=== PATIENT | female | born 1955 | race Caucasian/White ===

== ENCOUNTER 2018-10-28 11:33 | Emergency (ER) | payer OTHER ==
[~2018-10-28] VITALS: Ht 152.4 cm; Wt 64.0 kg
[2018-10-28 12:15] VITALS: Ht 152.4 cm; Wt 64.0 kg
[2018-10-28 14:11] LABS: CARBON DIOXIDE 22.4 mmol/L (21-32); CHLORIDE SERUM 102 mmol/L (98-107); CREATININE SERUM 0.7 mg/dL (0.6-1.0); GFR1 > 60 mL/min; GLUCOSE SERUM 157 mg/dL (74-106); POTASSIUM SERUM 4.8 mmol/L (3.5-5.1); SODIUM SERUM 138 mmol/L (136-145)
[2018-10-28 14:15] LABS: ALBUMIN 3.7 g/dL (3.4-5.0); ALKALINE PHOSPHATASE 90 U/L (46-116); ALT/SGPT 23 U/L (14-59); AST/SGOT 15 U/L (15-37); BILIRUBIN TOTAL 0.26 mg/dL (0.20-1.00); LIPASE 77 IU/L (73-393)
[2018-10-28 14:20] LABS: PLATELET COUNT 295 x10^3mcL (130-400)
[2018-10-28 14:24] LABS: UA SPECIFIC GRAVITY >=1.030 (1.005-1.035); microscopic required? YES; urine erythrocyte NEGATIVE (NEGATIVE)
[2018-10-28 14:26] LABS: BASOPHIL % 0 % (0-2); RED CELL DISTRIBUTION WIDTH 18.3 % (11.5-14.5)
[2018-10-28 18:13] VITALS: BP 147/61
== END 2018-10-28 19:02 | disposition home or self-care (01) ==
LOC: ED 11:33
PROVIDERS: Emergency Medicine
DX: N39.0 Urinary tract infection, site not specified (principal); E11.9 Type 2 diabetes mellitus without complications; G43.909 Migraine, unspecified, not intractable, without status migrainosus; K57.90 Diverticulosis of intestine, part unspecified, without perforation or abscess without bleeding; F31.9 Bipolar disorder, unspecified; E78.00 Pure hypercholesterolemia, unspecified; G56.01 Carpal tunnel syndrome, right upper limb; Z90.710 Acquired absence of both cervix and uterus; Z90.49 Acquired absence of other specified parts of digestive tract
CPT/HCPCS: J1885; J2765; J7030

== ENCOUNTER 2018-11-16 10:53 | Emergency (ER) | payer OTHER ==
[~2018-11-16] VITALS: Ht 152.4 cm; Wt 64.0 kg
[2018-11-16 10:58] VITALS: Ht 152.4 cm; Wt 64.0 kg
[2018-11-16 13:12] LABS: CALCIUM 8.5 mg/dL (8.5-10.1); CARBON DIOXIDE 23.9 mmol/L (21-32); CHLORIDE SERUM 102 mmol/L (98-107); CREATININE SERUM 0.8 mg/dL (0.6-1.0); GFR1 > 60 mL/min; GLUCOSE SERUM 111 mg/dL (74-106); POTASSIUM SERUM 4.4 mmol/L (3.5-5.1); SODIUM SERUM 137 mmol/L (136-145)
[2018-11-16 13:15] LABS: BASOPHIL % 0.2 % (0-2); PLATELET COUNT 215 x10^3mcL (130-400)
[2018-11-16 13:22] LABS: ALKALINE PHOSPHATASE 46 U/L (46-116); ALT/SGPT 10 U/L (14-59); AST/SGOT 11 U/L (15-37); BILIRUBIN TOTAL 0.2 mg/dL (0.20-1.00); LIPASE 66 IU/L (73-393); TOTAL PROTEIN, SERUM 6.4 g/dL (6.4-8.2)
[2018-11-16 13:23] LABS: ALBUMIN 2.8 g/dL (3.4-5.0)
[2018-11-16 14:17] LABS: microscopic required? YES; urine erythrocyte NEGATIVE (NEGATIVE)
[2018-11-16 18:00] VITALS: BP 112/72
== END 2018-11-16 19:28 | disposition home or self-care (01) ==
LOC: ED 10:53
PROVIDERS: Emergency Medicine
DX: N39.0 Urinary tract infection, site not specified (principal)
CPT/HCPCS: J0696; J1885; Q0092

== ENCOUNTER 2018-11-20 21:32 | Inpatient (IN) | payer OTHER ==
[~2018-11-20] VITALS: Ht 152.4 cm; Wt 68.6 kg
[2018-11-20 23:05] LABS: BASOPHIL % 0.3 % (0-2); PLATELET COUNT 183 x10^3mcL (130-400)
[2018-11-20 23:11] LABS: RED CELL DISTRIBUTION WIDTH 17.2 % (11.5-14.5)
[2018-11-20 23:14] LABS: CALCIUM 7.8 mg/dL (8.5-10.1); CARBON DIOXIDE 22.6 mmol/L (21-32); CHLORIDE SERUM 101 mmol/L (98-107); CREATININE SERUM 0.8 mg/dL (0.6-1.0); GFR1 > 60 mL/min; GLUCOSE SERUM 98 mg/dL (74-106); POTASSIUM SERUM 4.2 mmol/L (3.5-5.1); SODIUM SERUM 134 mmol/L (136-145)
[2018-11-20 23:19] LABS: ALKALINE PHOSPHATASE 45 U/L (46-116); AST/SGOT 14 U/L (15-37); BILIRUBIN TOTAL 0.21 mg/dL (0.20-1.00); LIPASE 55 IU/L (73-393)
[2018-11-20 23:35] LABS: ALT/SGPT 6 U/L (14-59)
[2018-11-20 23:38] LABS: ALBUMIN 2.7 g/dL (3.4-5.0); TOTAL PROTEIN, SERUM 5.9 g/dL (6.4-8.2)
[2018-11-21] MEDS ORDERED: BASAGLAR K100 UNIT/1 SQ (01:48)
[2018-11-21] MEDS ORDERED: LATANOPROST2.5 ML OP (01:48)
[2018-11-21] MEDS ORDERED: MAC100 PO (01:49)
[2018-11-21] MEDS ORDERED: ADMELOG SO100 UNIT/1 (01:50)
[2018-11-21] MEDS ORDERED: BACTROBAN22 TP (01:50)
[2018-11-21] MEDS ORDERED: METFORMIN HCL1000 MG PO (01:51)
[2018-11-21] MEDS ORDERED: ADMELOG100 UNIT/1 (01:51)
[2018-11-21] MEDS ORDERED: MORPHINE SULFAT15 MG PO (01:52)
[2018-11-21] MEDS ORDERED: BENADRYL ALLERG25 M1 PO (01:52)
[2018-11-21] MEDS ORDERED: MELATIN1 TAB PO (01:52)
[2018-11-21] MEDS ORDERED: ASPIR 8181 MG PO (01:53)
[2018-11-21] MEDS ORDERED: RISPERDAL0.5 MG PO (01:53)
[2018-11-21] MEDS ORDERED: DEPAKOTE SPRIN125 MG PO (01:54)
[2018-11-21] MEDS ORDERED: MOT800 PO (01:54)
[2018-11-21] MEDS ORDERED: ALBUTEROL0.63 MG/3 (01:55)
[2018-11-21 02:53] LABS: CHOLESTEROL/HDL RATIO 6.9; IRON 19 ug/dL (50-170); MAGNESIUM 1.5 mg/dL (1.8-2.4); PHOSPHOROUS 3.3 mg/dL (2.5-4.9); TOTAL IRON BINDING CAPACITY 404 ug/dL (250-450)
[2018-11-21 03:03] LABS: FREE T4 1.04 ng/dL (0.76-1.46); FREE THYROXINE INDEX 2.7 ug/dL (1.4-4.5); T4(THYROXINE) 8.5 ug/dL (4.7-13.3)
[2018-11-21 03:05] LABS: RED BLOOD CELLS 3.55 M/mm3 (4.10-5.10)
[2018-11-21 03:11] LABS: T3 TOTAL 1.3 ng/mL
[2018-11-21 03:28] VITALS: BP 108/48
[2018-11-21 04:50] VITALS: BP 108/48
[2018-11-21 06:31] VITALS: BP 102/48
[2018-11-21 06:42] LABS: BASOPHIL % 0.3 % (0-2); PLATELET COUNT 169 x10^3mcL (130-400)
[2018-11-21 06:56] LABS: CALCIUM 7.5 mg/dL (8.5-10.1); CHLORIDE SERUM 102 mmol/L (98-107); CREATININE SERUM 0.8 mg/dL (0.6-1.0); GFR1 > 60 mL/min; GLUCOSE SERUM 87 mg/dL (74-106); MAGNESIUM 1.7 mg/dL (1.8-2.4); PHOSPHOROUS 3.5 mg/dL (2.5-4.9); POTASSIUM SERUM 4.5 mmol/L (3.5-5.1); SODIUM SERUM 136 mmol/L (136-145)
[2018-11-21 07:38] LABS: microscopic required? NO
[2018-11-21 08:08] LABS: AMPHETAMINE QUAL UR NONE DETECTED (See below)
[2018-11-21 08:24] LABS: urine erythrocyte NEGATIVE (NEGATIVE)
[2018-11-21 09:23] VITALS: BP 96/36
[2018-11-21 16:22] VITALS: BP 96/45
[2018-11-21 20:35] VITALS: BP 113/57
[2018-11-22 06:06] VITALS: BP 95/34
[2018-11-22 09:54] VITALS: BP 116/58
[2018-11-22 13:09] VITALS: BP 116/58
[2018-11-22 17:54] VITALS: BP 112/60
[2018-11-23 08:43] VITALS: Ht 152.4 cm; Wt 68.6 kg
== END 2018-11-22 23:07 | DRG 48 ==
LOC: ED 21:32 → MU 11-21 01:51
PROVIDERS: Emergency Medicine; General Practice; ADMIT Internal Medicine
DX: E11.43 Type 2 diabetes mellitus with diabetic autonomic (poly)neuropathy (principal); N17.0 Acute kidney failure with tubular necrosis; E43 Unspecified severe protein-calorie malnutrition; K59.00 Constipation, unspecified; K31.84 Gastroparesis; E11.65 Type 2 diabetes mellitus with hyperglycemia; E87.1 Hypo-osmolality and hyponatremia; E83.42 Hypomagnesemia; F31.9 Bipolar disorder, unspecified; J98.11 Atelectasis; E78.5 Hyperlipidemia, unspecified; G43.909 Migraine, unspecified, not intractable, without status migrainosus; E78.00 Pure hypercholesterolemia, unspecified; E11.39 Type 2 diabetes mellitus with other diabetic ophthalmic complication; H42 Glaucoma in diseases classified elsewhere; J45.909 Unspecified asthma, uncomplicated; E83.51 Hypocalcemia; L22 Diaper dermatitis; M47.896 Other spondylosis, lumbar region; G89.29 Other chronic pain; L30.4 Erythema intertrigo; D50.9 Iron deficiency anemia, unspecified; T40.2X5A Adverse effect of other opioids, initial encounter; Y92.018 Other place in single-family (private) house as the place of occurrence of the external cause; Z59.0 Homelessness; Z68.29 Body mass index [BMI] 29.0-29.9, adult; Z89.612 Acquired absence of left leg above knee; Z79.84 Long term (current) use of oral hypoglycemic drugs; Z88.6 Allergy status to analgesic agent; Z88.1 Allergy status to other antibiotic agents; Z88.5 Allergy status to narcotic agent; Z88.8 Allergy status to other drugs, medicaments and biological substances; Z90.710 Acquired absence of both cervix and uterus; Z90.49 Acquired absence of other specified parts of digestive tract
CPT/HCPCS: 82962; 84439; 97112-GP; 97116-GP; 97530-GP; J1200; J2270; J2405; J3475; J7030; Q0092